=== PATIENT | male | born 1955 | race Caucasian/White ===

== ENCOUNTER → 2020-07-26 09:53 | Outpatient (BNVA) | payer SELFPAY | PROVIDERS: PCP Internal Medicine; Visit Provider Physician Assistant Medical | DX: Z02.79 Encounter for issue of other medical certificate (principal) ==

== ENCOUNTER → 2021-07-22 11:13 | Outpatient (BNVA) | payer SELFPAY | PROVIDERS: PCP Internal Medicine; Visit Provider Physician Assistant | DX: Z02.79 Encounter for issue of other medical certificate (principal) ==

== ENCOUNTER 2021-09-29 08:04 | Outpatient (REF) | payer OTHER, SELFPAY ==
[2021-09-29 08:31] LABS: MANUAL DIFF FLAG NO; Urine Cytology See Pathology rpt
[2021-09-29 09:35] LABS: Basophils Percent Auto 0.3 % (0-2); Eosinophils Absolute Auto 0.2 X10*3/uL (0.0-0.4); Eosinophils Percent Auto 3.4 % (0-4); Hemoglobin 14.1 g/dl (14.0-18.0); Imm Gran Abs Auto 0.02 X10*3/uL (0.00-0.03); Imm Gran Pct Auto 0.3 % (0.0-0.4); Lymphocytes Absolute Auto 1.8 X10*3/uL (1.2-4.9); Lymphocytes Percent Auto 25.6 % (20-40); Mean Corpuscular Hemoglobin 29.7 pg (27.0-33.0); Mean Corpuscular Volume 92.8 fL (80.0-98.0); Monocytes Absolute Auto 0.5 X10*3/uL (0.1-1.2); Monocytes Percent Auto 7.3 % (2-11); Neutrophils Absolute Auto 4.4 x10*3/uL (2.0-8.3); Neutrophils Percent Auto 63.1 % (45-73); Platelet Count 202 X10*3/uL (160-400); Red Blood Count 4.74 X10*6/uL (4.60-5.80); Red Cell Distribution Width 14.4 % (11.0-16.0)
[2021-09-29 09:52] LABS: Alanine Aminotransferase 12 U/L (0-40); Albumin Level 4.1 g/dL (3.5-5.0); Alkaline Phosphatase 70 U/L (39-117); Anion Gap 12 (12-20); Aspartate Amino Transferase 19 U/L (5-37); Bilirubin Total 0.6 mg/dL (0.0-1.0); Blood Urea Nitrogen 19 mg/dL (9-16); Calcium 9.7 mg/dL (8.4-10.2); Carbon Dioxide 27 mmol/L (22-29); Chloride 107 mmol/L (96-108); Cholesterol 194 mg/dL; Estimated Glomerular Filt Rate 59; Glucose Random 103 mg/dL (60-115); HDL Cholesterol 72 mg/dL; LDL Cholesterol Calculated 110 mg/dl; Potassium 5.4 mmol/L (3.3-5.1); Sodium 141 mmol/L (135-145); Total Protein 6.6 g/dL (6.5-8.0); Triglycerides 60 mg/dL
[2021-09-29 10:13] LABS: PSA,Total (Free>4and<10) 1.47 ng/mL (0.00-4.00); Thyroid Stimulating Hormone 1.93 uIU/mL (0.32-4.0); Vitamin D 25-OH Total 20.7 ng/mL (>30)
[2021-09-29 10:51] LABS: Appearance Urine CLEAR; Color Urine YELLOW; Glucose Urine UA NEG (NEG); Leukocyte Esterase Urine NEG (NEG); Nitrite Urine NEG (NEG); PH 5.5 (5.0-8.0); Specific Gravity - Urine >= 1.030 (1.005-1.025); Urine Blood TRACE (NEG); Urine Ketones NEG (NEG); Urine Protein NEG (NEG-TRACE)
[2021-09-29 11:01] LABS: Mucus Urine 1+ /LPF; WBC Urine 0-2 /HPF (0-4)
== END 2021-09-29 08:05 | disposition home or self-care (01) ==
LOC: HO.LAB 08:04
PROVIDERS: PCP Internal Medicine; Visit Provider Internal Medicine
DX: Z00.00 Encounter for general adult medical examination without abnormal findings (principal); Z12.5 Encounter for screening for malignant neoplasm of prostate; I10 Essential (primary) hypertension
CPT/HCPCS: 36415; 80053; 80061; 81001; 81003; 82306; 84153; 84443; 85025; 88112

== ENCOUNTER 2021-11-23 10:09 | Outpatient (REF) | payer OTHER, SELFPAY ==
--- NOTE | ~2021-11-23 | US_ITS ---
EXAMINATION: US EXTRACRANIAL CAROTID DUPLEX, BILATERAL CLINICAL INFORMATION: This is a 66-year-old male with a left carotid bruit. Carotid artery disease. COMPARISON: None TECHNIQUE: Real-time ultrasound and Doppler techniques (integrating B-mode 2-D vascular images, Doppler spectral analysis and color-flow Doppler imaging) were utilized to interrogate the extracranial carotid arteries, the vertebral arteries and proximal subclavian arteries bilaterally. The degree of stenosis is determined by criteria similar to NASCET. FINDINGS: Right Side: 1. There is minimal atherosclerotic plaque seen in the bifurcation/proximal ICA region. 2. The common carotid artery PSV proximally is 104 cm/s and distally 84 cm/s. 3. The proximal internal carotid artery velocities are 75 cm/s systolic and 18 cm/s diastolic. 4. The proximal external carotid artery PSV is 75 cm/s. 5. The vertebral artery shows antegrade flow. 6. The subclavian artery waveforms are normal. Left Side: 1. There is minimal atherosclerotic plaque seen in the bifurcation/proximal ICA region. 2. The common carotid artery PSV proximally is 66 cm/s and distally 81 cm/s. 3. The proximal internal carotid artery velocities are 41 cm/s systolic and 12 cm/s diastolic. 4. The proximal external carotid artery PSV is 78 cm/s. 5. The vertebral artery shows antegrade flow. 6. The subclavian artery waveforms are normal. US/US carotid duplex BI IMPRESSION: 1. RIGHT: Minimal, non-hemodynamically significant stenosis of the proximal right internal carotid artery corresponding to a 0-49% stenosis by velocity criteria. 2. LEFT: Minimal, non-hemodynamically significant stenosis of the proximal left internal carotid artery corresponding to a 0-49% stenosis by velocity criteria.
== END 2021-11-23 10:10 | disposition home or self-care (01) ==
LOC: HO.US 10:09
PROVIDERS: Visit Provider Internal Medicine
DX: R09.89 Other specified symptoms and signs involving the circulatory and respiratory systems (principal)
CPT/HCPCS: 93880

== ENCOUNTER 2022-03-22 08:57 | Outpatient (REF) | payer OTHER, SELFPAY ==
--- NOTE | ~2022-03-22 | XR_ITS ---
EXAMINATION: XR CHEST CLINICAL INFORMATION: Weight loss.. Heavy smoker. COMPARISON: None TECHNIQUE: 2 views of the chest were obtained. FINDINGS: The lungs are hyperinflated but clear. The heart size and pulmonary vascularity is normal. No gross bony abnormality seen. XR/XR chest 2V IMPRESSION: Hyperinflated lungs without acute process.
[2022-03-22 09:29] LABS: MANUAL DIFF FLAG NO
[2022-03-22 09:48] LABS: Basophils Percent Auto 0.2 % (0-2); Eosinophils Percent Auto 0.3 % (0-4); Hematocrit 42.7 % (42.0-52.0); Hemoglobin 13.9 g/dl (14.0-18.0); Imm Gran Abs Auto 0.04 X10*3/uL (0.00-0.03); Imm Gran Pct Auto 0.4 % (0.0-0.4); Lymphocytes Percent Auto 10.5 % (20-40); Mean Corpuscular HGB Conc 32.6 g/dl (31.0-36.0); Mean Corpuscular Hemoglobin 30.5 pg (27.0-33.0); Mean Corpuscular Volume 93.8 fL (80.0-98.0); Mean Platelet Volume 10.2 fL (9.4-12.4); Monocytes Absolute Auto 0.7 X10*3/uL (0.1-1.2); Monocytes Percent Auto 7.6 % (2-11); Neutrophils Absolute Auto 7.8 x10*3/uL (2.0-8.3); Platelet Count 256 X10*3/uL (160-400); Red Blood Count 4.55 X10*6/uL (4.60-5.80); Red Cell Distribution Width 14.9 % (11.0-16.0); White Blood Count 9.6 X10*3/uL (4.8-10.8)
[2022-03-22 10:07] LABS: Alanine Aminotransferase 34 U/L (0-40); Albumin Level 4.5 g/dL (3.5-5.0); Alkaline Phosphatase 79 U/L (39-117); Anion Gap 15 (12-20); Aspartate Amino Transferase 48 U/L (5-37); Bilirubin Direct 0.2 mg/dL (0.0-0.5); Bilirubin Total 0.3 mg/dL (0.0-1.0); Blood Urea Nitrogen 25 mg/dL (9-16); C Reactive Protein 0.13 mg/dL (< or = 0.50); Calcium 9.8 mg/dL (8.4-10.2); Carbon Dioxide 28 mmol/L (22-29); Chloride 105 mmol/L (96-108); Estimated Glomerular Filt Rate > 60; Glucose Random 90 mg/dL (60-115); Lipase 86 U/L (8-78); Potassium 5.7 mmol/L (3.3-5.1); Sodium 142 mmol/L (135-145); Total Protein 7.2 g/dL (6.5-8.0)
[2022-03-22 10:29] LABS: Thyroid Stimulating Hormone 1.65 uIU/mL (0.32-4.0)
[2022-03-22 11:10] LABS: Erythrocyte Sedimentation Rate 7 MM/HR (0-15)
[2022-03-24 21:07] LABS: TS Negative Control Passed; TS Panel A 0; TS Panel B 0; TS Positive Control Passed; TSpotTB Negative (Negative)
== END 2022-03-22 08:58 | disposition home or self-care (01) ==
LOC: HO.XRAY 08:57
PROVIDERS: PCP Internal Medicine; Visit Provider Internal Medicine
DX: Z11.1 Encounter for screening for respiratory tuberculosis (principal); R63.4 Abnormal weight loss
CPT/HCPCS: 36415; 71046; 80048; 80076; 82550; 83690; 84443; 85025; 85652; 86140; 86481

== ENCOUNTER 2022-03-22 12:21 | Emergency (ER) | payer OTHER, SELFPAY ==
--- NOTE | ~2022-03-22 | CT_ITS ---
EXAMINATION: CT CHEST WITH CONTRAST CLINICAL INFORMATION: Heavy smoker. Weight loss. COMPARISON: Previous chest x-ray from earlier the same day. TECHNIQUE: Multidetector volumetric CT imaging of the chest was obtained after the administration of 85 mL of Omnipaque 350 intravenous contrast without immediate adverse reactions. Axial MIP volume rendering provided. Sagittal and coronal reformatted images were obtained. This CT examination was performed using dose optimization techniques as appropriate, variously including the following: *Automated exposure control *Adjustment of mA and/or kV according to patient size (this includes techniques or standardized protocols for targeted exams where dose is matched to indication/reason for exam; i.e. extremities or head) *Use of iterative reconstruction technique DLP: 235 mGy-cm FINDINGS: PRINCIPAL PRODUCT MANAGER: Well-inflated lungs. LUNGS: There is paraseptal and centrilobular emphysema. There are small pulmonary nodules or micronodules. Largest pulmonary nodule is a calcified superior segment right lower lobe nodule near the major fissure axial image 247 series 8. There is evidence of mild airways disease seen in the right upper lobe with areas of bronchial soft tissue opacification. No suspicious pulmonary nodule is seen. MEDIASTINUM: Coronary artery calcification. The mediastinum is otherwise normal. PLEURA: There is no pleural effusion. No pleural mass or thickening. AXILLA: No lymphadenopathy. UPPER ABDOMEN: Unremarkable. OSSEOUS STRUCTURES: Unremarkable. CT/CT chest w con IMPRESSION: Emphysema. Small pulmonary nodules or micronodules. According to the UPDATED 2017 Fleischner Society recommendations, the advised follow-up imaging for less than 6 mm nodule: Low risk, no chest CT follow-up and high risk, optional chest CT follow-up in one year. Mild right upper lobe airways disease. Coronary artery calcification. Fleischner guidelines were followed.
--- NOTE | ~2022-03-22 | CT_ITS ---
EXAMINATION: CT ABDOMEN AND PELVIS WITH CONTRAST CLINICAL INFORMATION: Weight loss and fatigue COMPARISON: Previous abdominal ultrasound and CT of the abdomen and pelvis from 2010 TECHNIQUE: Multidetector volumetric images were obtained from the superior aspect of the liver through the pubic symphysis following administration 85 mL of Omnipaque 350 intravenous contrast. Sagittal and coronal reformatted images were obtained on the technologist's workstation. Oral contrast: Yes This CT examination was performed using dose optimization techniques as appropriate, variously including the following: *Automated exposure control *Adjustment of mA and/or kV according to patient size (this includes techniques or standardized protocols for targeted exams where dose is matched to indication/reason for exam; i.e. extremities or head) *Use of iterative reconstruction technique DLP: 323 mGy-cm FINDINGS: LUNG BASES: The visualized lung bases are unremarkable. LIVER, GALLBLADDER, AND BILIARY TREE: The liver is normal in size, shape, and attenuation. No focal hepatic lesion or biliary ductal dilatation is present. There is mild periportal edema. This is a nonspecific finding. The gallbladder is unremarkable with no evidence of radiopaque gallstones, gallbladder wall thickening, or obvious pericholecystic inflammatory changes. PANCREAS: Unremarkable. SPLEEN: Small splenic calcification probably related to old granulomatous disease. ADRENAL GLANDS: Unremarkable. KIDNEYS AND URETERS: There are small left renal cyst. The kidneys are otherwise normal. BLADDER: Unremarkable. GASTROINTESTINAL TRACT: The bowel is difficult to evaluate due to paucity of intra-abdominal fat. No abnormality is seen. There is question of mild wall thickening of the proximal stomach versus changes due to underdistention. ABDOMINAL WALL: No significant hernia is appreciated. LYMPH NODES: Normal. VASCULAR: There is atherosclerotic disease. PELVIC VISCERA: Unremarkable. OSSEOUS STRUCTURES: There are degenerative changes of the spine and mild scoliosis. CT/CT abdomen pelvis w con IMPRESSION: Mild periportal edema. This is a nonspecific finding. This can be seen with aggressive fluid hydration. Small left renal cyst. Question mild wall thickening of proximal stomach versus changes due to underdistention. Evaluation of the small and large bowel is limited due to paucity of fat. Atherosclerotic disease. Fleischner guidelines were followed.
[2022-03-22 13:05] VITALS: BP 120/66; PULSE 67; RESP 16; TEMP 36.4; O2SAT 98; BMI 19.5
--- NOTE | 2022-03-22 13:58 | ED_ITS ---
HPI - General Adult General Chief complaint: Recheck/Abnormal Lab/Rx Stated complaint: sent by for fluids Time Seen by Provider: 03/22/22 13:37 Source: patient and family Mode of arrival: ambulatory Limitations: no limitations History of Present Illness HPI narrative: sent by PCP had CXR and labs done today for unexplained weight loss - K 5.7 no longer on lisinopril, also 8lb weight loss in 3 weeks unexplained. sent for IVF MD complaint: weight loss elevated K Onset (ago): day(s) (routine labs today 8lb weight loss over 3 weeks) Severity: mild Relieving factors: none Exacerbating factors: none Associated symptoms: malaise and other (unexplained weight loss normal appetite) Treatments prior to arrival: none Related Data Allergies Allergy/AdvReac Type Severity Reaction Status Date / Time No Known Allergies Allergy Verified 03/22/22 13:04 Review of Systems Review of Systems: Constitutional : pos Weight loss, No Fever, No Chills, No Fatigue, No Malaise ENT/Mouth : No sore throat, No Rhinorrhea Eyes: No Eye Pain, No Swelling, No Redness Cardiovascular : No Chest Pain, No SOB, No Dyspnea on Exertion, No Orthopnea, No Edema, No Palpitations Respiratory : No Cough, No Sputum, No Wheezing Gastrointestinal : No Nausea, No Vomiting, No Diarrhea, No Constipation, No abdominal Pain, No Hematochezia, No Melena Genitourinary : No Dysuria, No Urinary Frequency, No Hematuria, Musculoskeletal : No joint pain, No Myalgias, No Joint Swelling Skin : No Skin Lesions, No rash Neuro : No Weakness, No Numbness, No Dizziness, No Headache Psych : No Anxiety/Panic, No Depression Heme/Lymph: No Bruising, No Bleeding,No Lymphadenopathy Endocrine : No Polyuria, No Polydipsia All other systems reviewed and are negative PMFSH Past Medical History Attestation statement: The following information was validated with the patient. Medical History (Updated 03/22/22 @ 16:07 by Hanna Sanchez DO) HTN (hypertension) Social History Social History (Updated 03/22/22 @ 14:01 by Hanna Sanchez DO) Patient Tobacco Use Status: Current everyday Tobacco user Advance Directives: Yes Advance Directives Information Provided: No Advance Directives on File: No Physical Exam ED Vital Signs: Vital Signs - 24 hr 03/22/22 13:05 08/17/22 13:59 Temperature 97.5 F Pulse Rate 67 66 Respiratory Rate 16 16 Blood Pressure 120/66 130/63 Pulse Oximetry 98 98 Oxygen Delivery Method Room Air Room Air BMI result Body Mass Index 19.5 Appearance: Alert. Oriented X3. No acute distress. Eyes: Pupils equal, round and reactive to light. ENT: Pharynx normal. Neck: Normal inspection. Neck supple. CVS: Normal heart rate and rhythm. Pulses normal. Respiratory: No respiratory distress. Breath sounds normal. Abdomen: Soft and non-tender. Skin: Skin warm and dry. Normal skin color. Normal skin turgor. Extremities: No lower extremity edema. No calf ttp Neuro: Oriented X 3. No motor deficit. No sensory deficit. Course Course Course Narrative: signed out to Dr. Jean pending CT scan and repeat K Dr. Rosas notified and will follow up with office in regards to outpatient follow up Medical Decision Making MDM Narrative Medical decision making narrative: 66 yo male with hx of HTN coming from PCP for fluids with unexplained weight loss 8lbs over 3 weeks my biggest concerns is malignancy at this point given weight loss and heavy smoking will obtain CT scan of chest/abdomen - give lokelma and hydrate. Obtain EKG. Dispo per results and findings. ECG Data Attestation: I personally reviewed and interpreted this ECG as follows: Interpretation: Rate: 61 Rhythm: NSR Montgomery: normal Normal P waves. Normal HIRAM. Normal QRS complex. ST T wave : nonspecific ant leads no MELITON qTC: normal prior studies: no acute ischemia The study has been interpreted contemporaneously by me. . Discharge Plan Discharge Clinical Impression: Abnormal weight loss, Acute hyperkalemia Patient Disposition: Still a Patient Instructions: Hyperkalemia (ED) Additional Instructions: return to ED for any worsening symptoms or concerns pending blood tests your doctor can follow up on include CEA and CA 125 message sent to GI for outpatient follow please call their office tomorrow - your stomach appeared thickened on CT scan Mild periportal edema. This is a nonspecific finding. This can be seen with aggressive fluid hydration. Small left renal cyst. Question mild wall thickening of proximal stomach versus changes due to underdistention. Evaluation of the small and large bowel is limited due to paucity of fat. Atherosclerotic disease. Referrals: Mayito Gonzalez DO [Primary Care Provider] - 5 days Jose Raza [Physician] - 1 week (call office this week for appointment)
[2022-03-22 13:59] VITALS: BP 130/63; PULSE 66; RESP 16; O2SAT 98
[2022-03-22] MEDS: Sodium Zirconium Cyclosilicate 5 GM POWD.PACK PO (14:07)
[2022-03-22] MEDS: 0.9 % Sodium Chloride 1,000 ML 999 ML IV (14:08)
--- NOTE | 2022-03-22 14:32 | ECG_ITS ---
Test Reason : hyperkalemia Blood Pressure : / mmHG Vent. Rate : 061 BPM Atrial Rate : 061 BPM P-R Int : 134 ms QRS Dur : 088 ms QT Int : 406 ms P-R-T Axes : 063 050 068 degrees QTc Int : 408 ms Normal sinus rhythm Normal ECG No previous ECGs available Referred By: Hanna Sanchez Electronically Signed By:CORETTA MARSH
[2022-03-22] MEDS: iohexoL 350 MG/ML 100 ML INFUS..BTL IV (14:50)
[2022-03-22 16:19] VITALS: BP 130/67; PULSE 57; RESP 16; O2SAT 100
[2022-03-22 17:01] LABS: Potassium 4.4 mmol/L (3.3-5.1)
[2022-03-24 09:03] LABS: CA-125 7 U/mL (<35)
== END 2022-03-22 18:00 | disposition home or self-care (01) ==
PROVIDERS: Emergency Medicine; Emergency Provider Emergency Medicine; PCP Internal Medicine
DX: R63.4 Abnormal weight loss (principal); Z68.1 Body mass index [BMI] 19.9 or less, adult; E87.5 Hyperkalemia; R91.8 Other nonspecific abnormal finding of lung field; I10 Essential (primary) hypertension; F17.200 Nicotine dependence, unspecified, uncomplicated
CPT/HCPCS: 36415; 71260; 74177; 82378; 84132; 86304; 93005; 96360; 96361; 99284; Q9967

== ENCOUNTER 2022-04-11 07:28 | Outpatient (REF) | payer OTHER, SELFPAY | END 2022-04-11 07:29 | disposition home or self-care (01) | LOC: HO.RESP 07:28 | PROVIDERS: PCP Internal Medicine; Visit Provider Internal Medicine | DX: Z13.89 Encounter for screening for other disorder (principal) ==

== ENCOUNTER 2022-04-13 08:02 | Outpatient (REF) | payer OTHER, SELFPAY ==
--- NOTE | 2022-04-13 | PFT_ITS ---
FLOWS: FEV1 113% of predicted at 3.71 L. FVC 120% of predicted at 5.29 L. FEV1 to FVC ratio of 0.70. No bronchodilator response. LUNG VOLUMES: Total lung capacity 109% of predicted at 7.48 L. Residual volume 96% of predicted at 2.24 L. Slow vital capacity 116% of predicted at 5.24 L. Expiratory reserve volume 171% of predicted at 2.16 L. Diffusion capacity is mildly decreased. IMPRESSION: Mild obstructive ventilatory defect with no bronchodilator response. Decreased diffusion capacity suggests emphysema. Valente Vasquez MD AP/MODL / [id number]
== END 2022-04-13 08:03 | disposition home or self-care (01) ==
LOC: HO.RESP 08:02
PROVIDERS: PCP Internal Medicine; Visit Provider Internal Medicine
DX: R63.4 Abnormal weight loss (principal)
CPT/HCPCS: 94060; 94727; 94729

== ENCOUNTER 2022-06-02 06:23 | Day surgery (SDC) | payer OTHER, SELFPAY ==
[2022-06-01 10:32] VITALS: BMI 19.9
--- NOTE | 2022-06-01 10:33 | HO.ANESPROP2 ---
Documented by User: Tresa Perez NP 06/01/22 10:35 HPI - Anesthesia Eval Consult details Narrative: 66yo M for Upper Endoscopy and Colonoscopy [facility] Past Medical History Medical History (Updated 06/01/22 @ 10:32 by Pamela Lyons RN) Colon polyps HTN (hypertension) Seasonal allergic rhinitis Tubular adenoma Vitamin D deficiency Weight loss Social History Social History (Updated 06/02/22 @ 07:50 by Samantha Llanes MD) Patient Tobacco Use Status: Current everyday Tobacco user Smoked in Last 30 Days: Yes Are you DNR?: No Advance Directives: No Advance Directives Information Provided: Yes Nutrition Risks: No Nutritional Risk Meds Allergies Allergy/AdvReac Type Severity Reaction Status Date / Time No Known Allergies Allergy Verified 03/22/22 13:04 Home Medications Medication Instructions Recorded Confirmed Last Taken Type Vitamin D (with calcium) 1 tab PO DAILY 06/01/22 06/01/22 06/01/22 History amlodipine 10 mg tablet 1 tab PO DAILY 06/01/22 06/01/22 06/02/22 History aspirin 81 mg PO DAILY 06/01/22 06/01/22 05/25/22 History Exam Exam Date and Time: June 01, 2022 1033 Height,Weight and Vital Signs: Height 5 ft 9 in Weight 61.235 kg Pertinent Lab Results Pertinent Lab Results: Laboratory Tests 03/22/22 03/22/22 03/22/22 09:26 09:26 16:42 WBC 9.6 Hgb 13.9 L Hct 42.7 Plt Count 256 D Sodium 142 Potassium 4.4 D Chloride 105 Carbon Dioxide 28 BUN 25 H Creatinine 1.09 Assessment and Plan Assessment Anesthesia Assessment: Chart Reviewed Documented by User: Samantha Llanes MD 06/02/22 07:52 [facility] Active Problems Active Problems: Smoker Hypertension Past Medical History Medical History (Updated 06/01/22 @ 10:32 by Pamela Lyons RN) Colon polyps HTN (hypertension) Seasonal allergic rhinitis Tubular adenoma Vitamin D deficiency Weight loss Family History Family history of problems with anesthesia: No Surgical History History of Problems with Anesthesia: No Social History Social History (Updated 06/02/22 @ 07:50 by Samantha Llanes MD) Patient Tobacco Use Status: Current everyday Tobacco user Smoked in Last 30 Days: Yes Are you DNR?: No Advance Directives: No Advance Directives Information Provided: Yes Nutrition Risks: No Nutritional Risk Meds Allergies Allergy/AdvReac Type Severity Reaction Status Date / Time No Known Allergies Allergy Verified 03/22/22 13:04 Home Medications Medication Instructions Recorded Confirmed Last Taken Type Vitamin D (with calcium) 1 tab PO DAILY 06/01/22 06/01/22 06/01/22 History amlodipine 10 mg tablet 1 tab PO DAILY 06/01/22 06/01/22 06/02/22 History aspirin 81 mg PO DAILY 06/01/22 06/01/22 05/25/22 History Exam Height,Weight and Vital Signs: Height 5 ft 9 in Weight 61.235 kg Vital Signs Temp Pulse Resp BP Pulse Ox O2 Del Method 06/02/22 06:29 98 F 94 20 134/66 97 Room Air Airway Mallampati Class: I TM Dist: >3cm Neck ROM: Full Loose/Missing/Broken Teeth: Yes (Top right back missing, 1 broken) Heart: RRR Lungs: CTAB Assessment and Plan Assessment Anesthesia Assessment: Anesthesia Plan Discussed Final Anesthetic Review Family History of Problems with Anesthesia: No History of Problems with Anesthesia: No NPO: Yes ASA Class: II Final Preanesthetic Review: No Changes in Pt Med Stat, Meds/Allgs Chart Reviewed, Consent Obtained/Reviewed and Anes Risks/Benef Reviewed Patient Risk: Low Procedure Risk: Low Assessment/Block/Sedation in SS: Assess/Block/Sedation-SS Anesthetic Plan Anesthetic Plan: MAC: Disposition: Standard PACU
[2022-06-02 06:29] VITALS: BP 134/66; PULSE 94; RESP 20; TEMP 36.6; O2SAT 97
[2022-06-02] MEDS: Lactated Ringers 1,000 ML 100 ML IVCONT (06:49)
--- NOTE | 2022-06-02 07:25 | P.HPSUR_ITS ---
Pre-Procedural Eval Section A Date of Service: 06/02/22 Section B Chief Complaint: weight loss,hx of polyps,abnormal findings on imag Details of Present Illness: see H&P no changes Relevant Family History (Specify if Yes): No Relevant Social History: None Present Medications: see Short Stay Collaborative assessment Medical History: No relevant PMH History of Previous Operations: No relevant previous surgery Allergies: Allergies Allergy/AdvReac Type Severity Reaction Status Date / Time No Known Allergies Allergy Verified 03/22/22 13:04 Review of Systems Sugical H&P ROS: Negative: Constitution, Cardiovascular, Respiratory, Neurol ogical, Psychiatric, Hem-Onc, Allergic/Immunologic, Gastrointestinal, Genitourinary, Musculoskeletal, Integumentary, Endocrine and Eyes/Ears/Nose/Throat Exam Surgical H&P Exam: Normal: HEENT, Normal: Heart, Normal: Lungs, Normal: Extremities, Normal: Abdomen, Normal: Skin and Normal: Neurological Plan Diagnosis/Plan: Unchanged I have reviewed the history and physical and performed a pertinent physical examination on my patient. No changes have occurred unless specified.
--- NOTE | 2022-06-02 08:32 | P.BOP_ITS ---
Brief Operative Note Date of Service: 06/02/22 Pre-op diagnosis: wt loss,abnl ct, screening Post-op diagnosis: same Procedure: egd, colon Surgeon: Jose Raza Anesthesia: MAC Was an Nitrocellulose Operator used for this Procedure?: No Estimated blood loss (mL): 2 Pathology: other Condition: stable Disposition: PACU
[2022-06-02 08:33] VITALS: BP 90/60; PULSE 85; RESP 16; TEMP 36.2; O2SAT 99
[2022-06-02 08:48] VITALS: BP 104/70; PULSE 80; RESP 16; O2SAT 99
[2022-06-02 09:03] VITALS: BP 113/72; PULSE 73; RESP 16; TEMP 36.3; O2SAT 99
--- NOTE | 2022-06-03 04:53 | OP_ITS ---
SURGEON: Jose Raza MD INDICATIONS: Weight loss, abnormal CT scan of the stomach, and personal history of colon polyps. PREOPERATIVE DIAGNOSIS: POSTOPERATIVE DIAGNOSIS: PROCEDURE PERFORMED: Upper endoscopy with biopsy, colonoscopy to the terminal ileum with snare polypectomy. ESTIMATED BLOOD LOSS: COMPLICATIONS: ANESTHESIA: ASSISTANTS: SPECIMENS: MEDICATIONS: Monitored anesthesia care. DESCRIPTION OF PROCEDURE: History and physical performed. The risks and benefits of the procedure were explained to the patient. Informed consent was obtained. The procedure was performed on 06/02/2022. The patient was placed in the left lateral decubitus position. The Olympus video gastroscope was introduced into the esophagus, stomach, and duodenum. Examination was performed. The scope was removed. He was repositioned for colonoscopy. A digital rectal exam was performed and was found to be normal. The Olympus pediatric video colonoscope was introduced into the rectum and advanced to the cecum without difficulty. The cecum was identified by transillumination, palpation, and identification of the ileocecal valve. Examination was performed. The scope was removed. He tolerated both procedures well and was taken to the recovery area in stable condition. FINDINGS: Upper endoscopy: 1. Esophagus: The esophagus was normal. There was no esophagitis. The EG junction was slightly irregular. Biopsies were obtained from the EG junction. 2. Stomach: The stomach showed no evidence of masses or ulcers. The stomach was J shaped. There was a 6 mm polyp on the anterior gastric wall in the midbody, which was biopsied. The other polyps were identified. Antral biopsies were obtained to rule out H pylori. 3. Duodenum: The bulb and second portion were normal. Biopsies were obtained from the second portion. Colonoscopy: The terminal ileum was examined and appeared normal. The visualized colonic mucosa was normal. The quality of the prep was good. There was a small polyp at 70 cm from the anal verge measuring approximately 7 to 8 mm. This was removed with a snare and recovered via suction. No other polyps were identified. Retroflexed examination showed moderate-sized internal hemorrhoids. IMPRESSION: 1. Gastric polyps. 2. Colon polyp. RECOMMENDATION: Follow up the biopsy results. MD LINDA Tomas/LEEANNE / [id number] [facility]
== END 2022-06-02 09:27 | disposition home or self-care (01) ==
PROVIDERS: PCP Internal Medicine; Visit Provider Internal Medicine Gastroenterology
PROC: (CPT 45385; principal; 2022-06-02 07:30)
DX: Z12.11 Encounter for screening for malignant neoplasm of colon (principal); Z86.010 Personal history of colon polyps; D12.4 Benign neoplasm of descending colon; K64.8 Other hemorrhoids; R63.4 Abnormal weight loss; K31.7 Polyp of stomach and duodenum; I10 Essential (primary) hypertension; E55.9 Vitamin D deficiency, unspecified; J30.2 Other seasonal allergic rhinitis; F17.210 Nicotine dependence, cigarettes, uncomplicated; Z79.82 Long term (current) use of aspirin; Z79.899 Other long term (current) drug therapy
CPT/HCPCS: 45385; 43239; 88305; 88342

== ENCOUNTER 2022-06-03 09:03 | Outpatient (REF) | payer OTHER, SELFPAY ==
[2022-06-03 11:18] LABS: Alanine Aminotransferase 15 U/L (0-40); Albumin Level 4.3 g/dL (3.5-5.0); Alkaline Phosphatase 81 U/L (39-117); Amylase 112 U/L (28-100); Anion Gap 16 (12-20); Aspartate Amino Transferase 21 U/L (5-37); Bilirubin Direct 0.2 mg/dL (0.0-0.5); Bilirubin Total 0.4 mg/dL (0.0-1.0); Blood Urea Nitrogen 13 mg/dL (9-16); Calcium 9.8 mg/dL (8.4-10.2); Carbon Dioxide 28 mmol/L (22-29); Chloride 103 mmol/L (96-108); Estimated Glomerular Filt Rate 58; Glucose Random 110 mg/dL (60-115); Lipase 50 U/L (8-78); Potassium 5.6 mmol/L (3.3-5.1); Sodium 141 mmol/L (135-145)
== END 2022-06-03 09:04 | disposition home or self-care (01) ==
LOC: HO.LAB 09:03
PROVIDERS: PCP Internal Medicine; Visit Provider Internal Medicine
DX: R63.4 Abnormal weight loss (principal)
CPT/HCPCS: 36415; 80048; 80076; 82150; 82550; 83690

== ENCOUNTER → 2022-07-18 13:03 | Outpatient (BNVA) | payer SELFPAY | PROVIDERS: PCP Internal Medicine; Visit Provider Internal Medicine | DX: Z02.79 Encounter for issue of other medical certificate (principal) ==

== ENCOUNTER 2023-02-12 12:53 | Outpatient (REF) | payer MEDICARE, SELFPAY | END 2023-02-12 12:54 | disposition home or self-care (01) | LOC: HO.LAB 12:53 | PROVIDERS: PCP Internal Medicine; Visit Provider Internal Medicine | DX: I10 Essential (primary) hypertension (principal); F41.9 Anxiety disorder, unspecified; E55.9 Vitamin D deficiency, unspecified | CPT/HCPCS: 36415; 80053; 82150; 83690; 85025 ==

== ENCOUNTER → 2023-07-17 09:58 | Outpatient (BNVA) | payer SELFPAY | PROVIDERS: PCP Internal Medicine; Visit Provider Physician Assistant Medical | DX: Z02.79 Encounter for issue of other medical certificate (principal) ==

== ENCOUNTER → 2024-07-14 09:24 | Outpatient (BNVA) | payer SELFPAY | PROVIDERS: PCP Internal Medicine; Visit Provider Physician Assistant Medical | DX: Z02.79 Encounter for issue of other medical certificate (principal) ==

== ENCOUNTER 2024-11-18 13:27 | Outpatient (AMB) | payer SELFPAY ==
--- NOTE | 2024-11-18 13:28 | A.OFFPC_ITS ---
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: No Accompanied by: Self / Same As Patient Allergies No Known Allergies Allergy (Verified 11/18/24 13:56) Medication List - Last Reconciled 11/18/24 by Sandip Torres MD amlodipine 1 tab PO DAILY [aspirin 81 mg PO DAILY] mirtazapine 7.5 mg PO BEDTIME [Vitamin D (with calcium) 1 tab PO DAILY] Tobacco use date assessed: 11/18/24 Fall risk assessment: No Falls in past year Last assessed Fall Risk: 11/18/24 Dental Screening Dental Screen Date: 11/18/24 Did you have a dental visit in the last 12 months?: Yes Did you have a dental problem in the last 6 months where you did not have access to dental care?: No Was dental information given to patient?: Patient has dentist [facility] Medical History (Updated 11/18/24 @ 13:56 by Sandip Torres MD) Tubular adenoma Colon polyps Weight loss Vitamin D deficiency Seasonal allergic rhinitis HTN (hypertension) Surgical History History of colonoscopy (~06/03/22) Family History Father Dementia Mother Dementia Social History Housing: House Alcohol intake: current Alcohol intake frequency: holidays/special occasions only Patient Tobacco Use Status: Current everyday Tobacco user Cigarettes Per Day: 10 service: No Current occupational status: employed and retired Cognitive needs: No Hearing needs: No Vision needs: Yes (reading glasses) Questionnaire PHQ-9 Over the last 2 weeks, how often have you been bothered by any of the following problems? 1. Little interest or pleasure in doing things: not at all 2. Feeling down, depressed, or hopeless: not at all 3. Trouble falling or staying asleep, or sleeping too much: not at all 4. Feeling tired or having little energy: not at all 5. Poor appetite or overeating: not at all 6. Feeling bad about yourself - or that you are a failure or have let yourself or your family down: not at all 7. Trouble concentrating on things, such as reading the newspaper or watching television: not at all 8. Moving or speaking so slowly that other people could have noticed. Or the opposite - being so fidgety or restless that you have been moving around a lot more than usual: not at all 9. Thoughts that you would be better off or of hurting yourself in some way: not at all Total score: 0 Source: Developed by Drs. Mayito Richard, Jazmín Zurita, Romie Butt and colleagues, with an educational barbara from [employer]. Thrive Questionnaire Date Thrive assessed: 11/18/24 I am a: Patient What is your living situation today?: I have a steady place to live Within the past 12 months, did the food you bought not last and you didn't have the money to get more?: Never true Within the past 12 months, did you worry whether your food would run out before you got money to buy more?: Never true Do you have trouble paying for medicines?: No Do you have trouble getting transportation to medical appointments?: No Do you have trouble paying your heating and electricity bill?: No Do you have trouble taking care of your child, family member or friend?: No Do you have trouble with day-to-day activities such as bathing, preparing meals, shopping, managing finances, etc.?: No Are you currently unemployed and looking for a job?: No Are you interested in more education?: No Please select the resources that you would like help with: None THRIVE Score: 0 AUDIT C Alcohol Use Questionnaire (AUDIT-C) 1. How often do you have a drink containing alcohol?: Monthly or less 2. How many drinks containing alcohol do you have on a typical day when you are drinking?: 1 or 2 3. How often do you have six or more drinks on one occasion?: Never Total Score: 1 VIDA-7 AMB Questionnaire VIDA-7 Date VIDA - 7 assessed: 11/18/24 Feeling nervous, anxious, or on edge: 0 = Not at all Not being able to stop or control worryin = Not at all Worrying too much about different things: 0 = Not at all Trouble relaxin = Not at all Being so restless that it is hard to sit still: 0 = Not at all Becoming easily annoyed or irritable: 0 = Not at all Feeling afraid as if something awful might happen: 0 = Not at all Total VIDA-7 score (0-4 normal; 5-9 mild; 10-14 moderate; 15-21 severe): 0 Source: Developed by Drs. Mayito Richard, Jazmín Zurita, Romie Butt and colleagues, with an educational barbara from [employer]. Physical exam (Primary Care) Vital Signs: Last Vital Signs Temp 97.7 F 11/18/24 13:39 Pulse 74 11/18/24 13:39 BP 144/84 H 11/18/24 13:39 Pulse Ox 99 11/18/24 13:39 Oxygen Delivery Method Room Air 11/18/24 13:39 BMI result Body Mass Index 20.4 Tobacco/Smoking Status: Tobacco use Status Tobacco use date assessed 11/18/24 11/18/24 13:31 Patient Tobacco Use Status Current everyday Tobacco 11/18/24 13:45 PHQ-9: PHQ-9 Score PHQ-9: Total score 0 11/18/24 13:31 Thrive Assessment: Date of Thrive Assessment Date Thrive assessed 11/18/24 11/18/24 13:31 Coding Level of Care Code New Pt Level 4 (73814) Complex EM visit Add On G2211 Diagnoses HTN (hypertension) I10 Assessment & Plan Assessment & Plan (1) HTN (hypertension): Code(s): I10 - Essential (primary) hypertension Category: Medical Plan: Continue meds at same dosage. BW has been ordered. Plan History of Present Illness The patient is a 69-year-old male presenting for a wellness visit. He reports no active symptoms or health concerns at this time. He adheres to a medication regimen that includes simvastatin for managing hyperlipidemia. There was a note about not recalling if blood work has been conducted recently, suggesting there might be a need for updated lab work. His current work schedule appears to be a heavy burden, as he shared experiences of working late shifts. Social History - Employment: Patient is currently working at [employer], indicates exhaustion due to late work hours. 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 - Reports currently working at an exit [employer], expressing dissatisfaction with the current work environment and lack of additional income through tips. Review of Systems - General: Denies any current concerns. - Cardiovascular: Denies symptoms. - Musculoskeletal: Reports exhaustion due to work hours. Physical Exam General: Cooperative and healthy appearing Nutritional Appearance: Well nourished Orientation/consciousness: Patient oriented x3 Limitations: No limitations Head: Normal to inspection General: Appearance normal, both eyes and all related structures Neck: Normal visual inspection Chest: Normal palpation of entire chest wall Respiratory: N ormal respiratory effort Neurology: Patient oriented x3, but reports feeling exhausted due to lack of sleep. Results Plan A review of the patient's hyperlipidemia management was conducted with emphasis on maintaining his current simvastatin regimen. As bloodwork has not been done recently, new lab tests were ordered for monitoring lipid levels to ensure effective treatment maintenance. Emphasis was placed on adhering to his medication schedule and engaging in lifestyle adjustments to help manage work- related fatigue. A follow-up visit was scheduled in six months to reassess overall health and manage ongoing wellness needs. Patient was informed and verbally consented to the use of an ambient scribe for clinic note documentation during this visit. Discussion Notes During this visit, I reviewed the patient's treatment plan for hyperlipidemia, which currently involves simvastatin. Although the patient did not have specific concerns, it was important to remind him of the significance of regular monitoring and adherence to medication. We discussed obtaining recent blood work to ensure his lipid levels are controlled. I highlighted the value of this in preventing significant cardiovascular events. I also advised the patient to be attentive to rest due to his reported work exhaustion. We discussed no apparent need for immediate prescription changes or adjustments. The approach emphasized a balanced continuation of his current plan, ensuring ongoing wellness. A return visit in six months was recommended for continuous evaluation and care. Patient Instructions - Continue taking simvastatin as prescribed. - Schedule and complete blood work at [facility] for lipid monitoring. - Maintain regular appointments for hyperlipidemia management. - Ensure adequate rest despite a challenging work schedule. - Return for follow-up in six months or earlier if new symptoms occur. - Monitor and report any changes in health or medication effectiveness.
[2024-11-18 13:39] VITALS: BP 144/84; PULSE 74; TEMP 36.5; O2SAT 99; BMI 20.4
== END 2024-11-18 13:56 | disposition home or self-care (01) ==
LOC: HO.HMCSH 13:27
PROVIDERS: PCP Internal Medicine; Visit Provider Internal Medicine
DX: I10 Essential (primary) hypertension (principal)

== ENCOUNTER → 2024-11-18 13:27 | Outpatient (BNVA) | payer SELFPAY | PROVIDERS: PCP Internal Medicine; Visit Provider Internal Medicine | DX: I10 Essential (primary) hypertension (principal) | CPT/HCPCS: 96127; 99202 ==

== ENCOUNTER → 2025-07-08 10:20 | Outpatient (BNVA) | payer SELFPAY | PROVIDERS: PCP Internal Medicine; Visit Provider Physician Assistant | DX: Z02.79 Encounter for issue of other medical certificate (principal) ==